=== PATIENT | female | born 2000 | race Two or more races ===

== ENCOUNTER 2024-06-15 22:17 | Emergency (ER) | payer OTHER ==
[2024-06-15] MEDS ORDERED: Ketorolac Tromethamine 30 MG (1 mL) VIAL ONE (23:05)
[2024-06-15] MEDS ORDERED: Ondansetron PF 4 MG/2 ML Vial ONE (23:05)
[2024-06-15 23:22] LABS: #Basophils 0.05 10x3/uL (0.0-0.2); #Eosinophils 0.12 10x3/uL (0.0-0.5); #Monocytes 0.52 10x3/uL (0.0-1.1); #Neutrophils 12.04 10x3/uL (1.5-8.4); %Basophils 0.4 % (0.0-2.0); %Eosinophils 0.9 % (0.0-6.0); %Monocytes 3.9 % (0.0-10.0); %Neutrophils 91.4 % (40.0-75.0); BHCG - Serum Negative (NEGATIVE); Hematocrit 48.8 % (34.9-44.5); Hemoglobin 16.7 g/dL (12.0-15.5); Mean Corpuscular HGB CONC 34.2 g/dL (32.0-36.0); Mean Corpuscular Hemoglobin 31.8 pg (27.0-33.0); Mean Platelet Volume 11.3 fL (7.4-10.4); Platelet Count 288 10x3/uL (150-450); Pregs Control Background? CLEAR/WHITE (CLR/WHITE); Pregs Control Bar Appear? YES (CONTROL BAR); RBC Distribution Width 11.3 % (11.5-14.5); Red Blood Cell (RBC) Count 5.25 10x6/uL (3.90-5.03); White Blood Cell (WBC) Count 13.2 10x3/uL (3.5-10.5)
[2024-06-15 23:31] LABS: ALT (SGPT) 20 U/L (8-55); AST (SGOT) 16 U/L (5-34); Albumin 4.9 g/dL (3.5-5.0); Alkaline Phosphatase 62 U/L (40-110); Anion Gap 19 mmol/L (10-20); BUN (Urea Nitrogen) 15 mg/dL (7.0-18.7); Bilirubin, Total 1.4 mg/dL (0.2-1.2); Calc. Creatinine Clearance 0 mL/min (70-130); Calcium 10.6 mg/dL (7.8-10.44); Carbon Dioxide 18 mmol/L (22-29); Chloride 104 mmol/L (98-107); Estimated GFR 70; Globulin 3.6 g/dL (2.4-3.5); Glucose 134 mg/dL (70-105); Lipase 29 U/L (8-78); Potassium 3.9 mmol/L (3.5-5.1); Protein, Total 8.5 g/dL (6.0-8.3); Sodium 137 mmol/L (136-145)
[2024-06-15 23:47] LABS: Bilirubin Neg (Negative); Blood, Urine 10 (Negative); Clarity Clear (Clear); Glucose, Urine (Dipstick) Normal (Negative); Ketone, Urine 150 mg/dL (Negative); Leukocyte 25 (Negative); Nitrite Negative (Negative); Protein, Urine (Dipstick) 15 mg/dl (Neg-Trace); Urobilinogen Normal mg/dL (Less than 2)
[2024-06-16 00:31] LABS: Bacteria/HPF 2+ HPF (None Seen); CAUTI Indications for Culture Pelvic or flank pain; Mucous/LPF 1+ LPF (<2+); RBC/HPF 0-3 HPF (0-3); Squamous Epithelial 0-3 HPF (0-3); WBC/HPF 0-3 HPF (0-3)
[2024-06-16 00:32] LABS: Urine Culture Reflex No No
== END 2024-06-16 01:04 | disposition home or self-care (01) ==
LOC: CSHERS 22:17
DX: A08.4 Viral intestinal infection, unspecified (principal); E86.0 Dehydration; Z55.0 Illiteracy and low-level literacy
CPT/HCPCS: 80053; 81001; 83605; 83690; 84703; 85025; 96361; 96374; 96375; J1885; J2405